=== PATIENT | female | born 1955 | race African-American/Black ===

== ENCOUNTER → 2025-03-04 | Day surgery (SDC) | payer MEDICARE ==
[~2025-03-04] MED LIST: ALLOPURINOL100 MG PO; ATORVASTATIN CA20 MG PO; BANOPHEN25 MG PO; CARVEDILOL3.125 MG PO; CLONIDINE HCL0.3 MG PO; COLCRYS0.6 MG PO; EYE LUBRICANT OPTH OINT 3.5GM TUBE OP ONE; FENTANYL CITRATE/PF 100MCG/2 ML INJ ONE; HYDRALAZINE HCL25 MG PO; IRBESARTAN150 MG PO; JARDIANCE10 MG PO; LACTATED RINGER'S 1,000 ML ONE; LEVOCETIRIZINE D5 MG PO; LIDOCAINE HCL 2% LOCAL INJ 5 ML SDV VIAL INJ ONE; PROPOFOL IV EMULSION 50 ML IV ONE; SINGULAIR10 MG PO; SUCRALFATE1 GM PO; TRAZODONE HCL100 MG PO; VITAMIN D250 MC1 PO; ZINC PO
[2025-03-04 10:58] LABS: BASOPHILS % 0.8 % (0.0-1.0); EOSINOPHILS % 3.0 % (0.0-6.0); LYMPHOCYTES % 36.5 % (18.0-39.1); MONOCYTES % 10.2 % (4.4-11.3); NEUTROPHILS % 49.3 % (38.7-80.0); RED CELL DISTRIBUTION WIDTH 18.5 % (11.7-14.4)
[2025-03-04 11:17] LABS: INR 0.95
[2025-03-04 11:20] LABS: EST GLOMERULAR FILTRATION RATE 30.0 ML/MIN (>=60)
[2025-03-04 12:40] VITALS: BP 151/73; PULSE 70; RESP 17; TEMP 98.1; O2SAT 98
== END | disposition home or self-care (01) ==
LOC: OR 06:42
PROVIDERS: ATTEND Internal Medicine Gastroenterology
DX: K29.50 Unspecified chronic gastritis without bleeding (principal); K21.9 Gastro-esophageal reflux disease without esophagitis; D12.2 Benign neoplasm of ascending colon; K64.8 Other hemorrhoids; E11.22 Type 2 diabetes mellitus with diabetic chronic kidney disease; N18.32 Chronic kidney disease, stage 3b; E11.51 Type 2 diabetes mellitus with diabetic peripheral angiopathy without gangrene; M16.9 Osteoarthritis of hip, unspecified; E78.00 Pure hypercholesterolemia, unspecified; I47.9 Paroxysmal tachycardia, unspecified; I25.118 Atherosclerotic heart disease of native coronary artery with other forms of angina pectoris; I13.0 Hypertensive heart and chronic kidney disease with heart failure and stage 1 through stage 4 chronic kidney disease, or unspecified chronic kidney disease; I50.32 Chronic diastolic (congestive) heart failure; E66.09 Other obesity due to excess calories; Z79.82 Long term (current) use of aspirin; Z79.899 Other long term (current) drug therapy; Z88.5 Allergy status to narcotic agent; Z88.0 Allergy status to penicillin; Z88.8 Allergy status to other drugs, medicaments and biological substances; Z91.048 Other nonmedicinal substance allergy status
CPT/HCPCS: 36415; 43239; 45385; 80048; 82948; 85025; 85610; 85730; 88305; 88342; 93005; J2003; J2704; J3010; J7121; 45378